=== PATIENT | female | born 1985 | race Caucasian/White ===

== ENCOUNTER → 2016-05-17 | Outpatient (CLI) | payer OTHER, BC ==
--- NOTE | 2016-05-18 13:55 | CR ---
EXAM DATE: 05/17/16 PATIENT'S AGE: 30 Patient: MIKKI MASON Facility: [place], [place] Site . Site : 1985 Study: XRay Extremity multiple toes [id number]/16/2017 4:51:59 PM Ordering Physician: Royce Locke Final Report: HISTORY: Pain 2nd and 3rd toes. Unknown injury. Findings: Three views of the right 2nd and 3rd toes demonstrates normal bone mineralization. There is normal alignment present. Joint spaces are maintained. No fracture or dislocation. No radiopaque foreign body. There is a small traction spur at the plantar aspect of the calcaneus. Impression: No bony abnormality within the 2nd and 3rd toes. Dictated by Santa Meyer MD @ May 18 2016 8:49AM (Electronic Signature) Report Signed by Proxy and Original Signed Document filed in the Medical Record. SHANI
== END ==
LOC: MW.CHFP 16:26
PROVIDERS: ATTEND Physician Assistant
DX: S99.921A Unspecified injury of right foot, initial encounter (principal)
CPT/HCPCS: 73660-26-RT; 73660-RT

== ENCOUNTER 2017-01-21 11:28 | Inpatient (IN) | payer BC ==
[2017-01-21] MEDS ORDERED: Water For Irrigation,Sterile 1,000 ML Container IRR PRN (13:57)
[2017-01-21] MEDS ORDERED: Sodium Chloride 0.9% 10 ML Syringe FLUSH PRN (13:57)
[2017-01-21] MEDS ORDERED: Misoprostol 200 MCG Tab PO PRN (13:57)
[2017-01-21] MEDS ORDERED: Nalbuphine 10 MG/1 ML Vial IVPUSH PRN (13:57)
[2017-01-21] MEDS ORDERED: Butorphanol 1 MG/ML SDV IVPUSH PRN (13:57)
[2017-01-21] MEDS ORDERED: Methylergonovine 0.2 MG/1 ML Amp IM PRN (13:57)
[2017-01-21] MEDS ORDERED: Sodium Chloride 0.9% 2.5 ML Syringe FLUSH PRN (13:57)
[2017-01-21] MEDS ORDERED: Lidocaine 1% 50 ML MDV INJECT PRN (13:57)
[2017-01-21] MEDS ORDERED: Carboprost Tromethamine 250 MCG/1 ML Amp IM PRN (13:57)
[2017-01-21] MEDS ORDERED: Lactated Ringers 1,000 ML IV SCH (14:00)
[2017-01-21] MEDS ORDERED: Oxytocin/0.9 % Sodium Chloride 30 UNIT/500 ML BAG IV SCH (14:00)
--- NOTE | 2017-01-21 18:12 | PCM.PREANE ---
Preanesthetic Assessment - Anesthesia/Transfusion/Family Hx Anesthesia History: Prior Anesthesia Without Reaction Transfusion History: No Prior Transfusion(s) - Review of Systems General: No Symptoms Pulmonary: No Symptoms Cardiovascular: No Symptoms Gastrointestinal: No Symptoms Neurological: No Symptoms Other: Reports: None - Physical Assessment Height: 5 ft 1 in Weight: 82.554 kg ASA Class: 2 Mental Status: Alert & Oriented x3 Airway Class: Mallampati = 2 Dentition: Reports: Normal Dentition Thyro-Mental Finger Breadths: 3 Mouth Opening Finger Breadths: 3 ROM/Head Extension: Full Lungs: Clear to Auscultation, Normal Respiratory Effort Cardiovascular: Regular Rate, Regular Rhythm - Lab Values: Laboratory Last Values WBC 9.89 K/uL (4.0-11.0) 01/21/17 14:10 RBC 3.91 M/uL (4.30-5.90) L 01/21/17 14:10 Hgb 12.5 g/dL (12.0-16.0) 01/21/17 14:10 Hct 36.3 % (36.0-46.0) 01/21/17 14:10 MCV 92.8 fL (80.0-98.0) 01/21/17 14:10 MCH 32.0 pg (27.0-32.0) 01/21/17 14:10 MCHC 34.4 g/dL (31.0-37.0) 01/21/17 14:10 RDW Std Deviation 45.8 fl (28.0-62.0) 01/21/17 14:10 RDW Coeff of Aaron 14 % (11.0-15.0) 01/21/17 14:10 Plt Count 200 K/uL (150-400) 01/21/17 14:10 MPV 9.80 fL (7.40-12.00) 01/21/17 14:10 Nucleated RBC % 0.0 /100WBC 01/21/17 14:10 Nucleated RBCs # 0 K/uL 01/21/17 14:10 Blood Type A POSITIVE 01/21/17 14:10 Antibody Screen NEGATIVE 01/21/17 14:10 - Allergies Allergies/Adverse Reactions: Allergies Allergy/AdvReac Type Severity Reaction Status Date / Time No Known Allergies Allergy Verified 08/30/14 22:59 - Acknowledgements Anesthesia Type Planned: Epidural Pt an Appropriate Candidate for the Planned Anesthesia: Yes Alternatives and Risks of Anesthesia Discussed w Pt/Guardian: Yes Pt/Guardian Understands and Agrees with Anesthesia Plan: Yes PreAnesthesia Questionnaire - Past Health History Medical/Surgical History: Denies Medical/Surgical History HEENT History: Reports: None Other Cardiovascular History: none Respiratory History: Reports: None Gastrointestinal History: Reports: GERD Genitourinary History: Reports: None SL[employer] History: Reports: : 4 Para: 2 LMP (Approximate): Musculoskeletal History: Reports: None Neurological History: Reports: None Psychiatric History: Reports: None Endocrine/Metabolic History: Reports: Obesity/BMI 30+ Hematologic History: Reports: None Immunologic History: Reports: None Oncologic (Cancer) History: Reports: None Dermatologic History: Reports: None - Infectious Disease History Infectious Disease History: Reports: Chicken Pox - Past Surgical History Other Cardiovascular Surgeries/Procedures: none - SUBSTANCE USE Smoking Status *Q: Never Smoker Second Hand Smoke Exposure: No Days Per Week of Alcohol Use: 0 Recreational Drug Use History: No - HOME MEDS Home Medications: Home Meds Vit No.130/Iron/FA [ Tablet] 1 tab PO DAILY 08/30/14 [History] Acetaminophen [Tylenol Extra Strength] 1,000 mg PO Q4H PRN #30 tablet 09/01/14 [ Rx] Benzocaine/Menthol [Dermoplast Pain Relief 20%-0.5% [place]] 78 gm TOP ASDIRECTED PRN #1 canister 09/01/14 [Rx] Docusate Sodium [Colace] 100 mg PO BID PRN #30 cap 09/01/14 [Rx] Lanolin [Lansinoh HPA] 7 g TOP ASDIRECTED PRN #1 crm 09/01/14 [Rx] - CURRENT (IN HOUSE) MEDS Current Meds: Current Medications Butorphanol Tartrate (Stadol) 1 mg IVPUSH Q1H PRN PRN Reason: Pain Carboprost Tromethamine (Hemabate Ds) 250 mcg IM ASDIRECTED PRN PRN Reason: Post Hemorrhage Lactated Ringer's (Ringers, Lactated) 1,000 mls @ 150 mls/hr IV ASDIRECTED AIDE Last Admin: 01/21/17 17:36 Dose: 150 mls/hr Oxytocin/Sodium Chloride (Oxytocin 30 Unit/500 Ml-Ns) 30 unit in 500 mls @ 250 mls/hr IV TITRATE AIDE Lidocaine HCl (Xylocaine 1%) 50 ml INJECT .ONCE PRN PRN Reason: Laceration repair Methylergonovine Maleate (Methergine) 0.2 mg IM ASDIRECTED PRN PRN Reason: Post Hemorrhage Misoprostol (Cytotec) 200 mcg PO .ONCE PRN PRN Reason: Post Hemorrhage Nalbuphine HCl (Nubain) 10 mg IVPUSH Q1H PRN PRN Reason: Pain (severe 7-10) Sodium Chloride (Saline Flush) 10 ml FLUSH ASDIRECTED PRN PRN Reason: Keep Vein Open Sodium Chloride (Saline Flush) 2.5 ml FLUSH ASDIRECTED PRN PRN Reason: Keep Vein Open Sterile Water (Sterile Water For Irrigation) 1,000 ml IRR ASDIRECTED PRN PRN Reason: delivery
[2017-01-21] MEDS ORDERED: fentaNYL 100 MCG/2 ML SDV ONE (18:20)
[2017-01-21] MEDS ORDERED: Ropivacaine HCl/PF 100 ML ONE (18:20)
[2017-01-21] MEDS ORDERED: oxyCODONE 5 MG Tab PO PRN (21:40)
[2017-01-21] MEDS ORDERED: Acetaminophen 500 MG Tab PO PRN ×2 (21:40)
[2017-01-21] MEDS ORDERED: Bisacodyl 10 MG Supp RECTAL PRN (21:40)
[2017-01-21] MEDS ORDERED: Docusate Sodium 100 MG Cap PO PRN (21:40)
[2017-01-21] MEDS ORDERED: Witch Hazel Medicated Pads 40/Jar TOP PRN (21:40)
[2017-01-21] MEDS ORDERED: Lanolin 100% Cream 7 GM Tube TOP PRN (21:40)
[2017-01-21] MEDS ORDERED: Ibuprofen 400 MG Tab PO PRN (21:40)
[2017-01-21] MEDS ORDERED: Benzocaine/Menthol 20%-0.5% Spray 78 GM Cannister TOP PRN (21:40)
--- NOTE | 2017-01-21 23:13 | OR ---
SURGEON: Chelsie Garcia MD DATE OF PROCEDURE: 01/21/2017 PREOPERATIVE DIAGNOSES: 1. Term at 40 weeks and 1 day. 2. Spontaneous labor. POSTOPERATIVE DIAGNOSES: 1. Term at 40 weeks and 1 day. 2. Spontaneous labor. 3. Delivered. PROCEDURE: 1. Spontaneous vaginal delivery. 2. Repair of perineal laceration. ANESTHESIA: Epidural. ESTIMATED BLOOD LOSS: 150 mL. COMPLICATIONS: None. DISPOSITION: Mother and baby stable in Labor and Delivery room, bonding. FINDINGS: Female infant, weight 3770 g, score 8 and 9 at one and five minutes respectively. Lightly meconium-stained amniotic fluid at delivery. Grossly normal placenta with 3-vessel cord. First-degree vaginal lacerations. BRIEF HISTORY: Leonor is a 31-year-old G4, P2-0-1-2 who presented at 40 weeks and 1 day with a history of contractions for over 24 hours with increasing intensity. Denied vaginal bleeding, leakage of fluid, and reported active fetus. Uncomplicated care. GBS negative. On admission at about 11 a.m., she was found to be 3-cm dilated, allowed to ambulate and reexamined, and hour after she had made cervical change to 4 cm, 80% effaced, station -2. She was then admitted. She continued to contract anything from 2 to 6 minutes, but made slow steady change. Seven hours later, she was 6-cm dilated, artificial rupture of membranes was performed with clear amniotic fluid noted. She then received epidural for pain management. Shortly after, the epidural was placed, she became fully dilated and with a strong urge to push, she commenced active pushing. She pushed quite well bringing the baby's head down to a +4 station and was setup for delivery in a modified dorsal lithotomy position. DESCRIPTION OF PROCEDURE: She had a spontaneous vaginal delivery of a live female infant in direct occipital anterior position, no nuchal cord, lightly meconium-stained amniotic fluid at delivery. No difficulty delivering the anterior and the posterior shoulders and the rest of the baby. Baby was vigorous and cried spontaneously at . The baby was delivered onto the maternal abdomen with the nursery nurse attending to her. Delayed cord clamping was performed, and the cord was subsequently cut by the father of the baby. With delivery of the infant, oxytocin infusion was commenced for active management of 3rd stage of labor. Cord blood and gas samples were obtained. Placenta was delivered by controlled cord traction appeared to be complete and intact. Examination of the perineum revealed a first-degree laceration, which was repaired with 3-0 Vicryl suture and hemostatic postrepair. Uterine massage was performed. The uterus was found to be well-contracted below the umbilicus. The patient tolerated the procedure well. Sponge, instrument, and needle counts were correct at the end of the delivery. ADUMVIV / NAHEEDL /[id number] MTDPascual
[2017-01-22] MEDS: Ibuprofen 800 MG Tab PO PRN ×2 (04:34→11:10)
--- NOTE | 2017-01-22 08:12 | PCM.PNPP ---
- General Info Date of Service: 01/22/17 Functional Status: Reports: Pain Controlled, Tolerating Diet, Ambulating, Urinating - Review of Systems General: Denies: Fever, Malaise, Chills HEENT: Denies: Headaches Pulmonary: Denies: Shortness of Breath, Pleuritic Chest Pain Cardiovascular: Denies: Chest Pain, Palpitations, Dyspnea on Exertion Gastrointestinal: Denies: Abdominal Pain Genitourinary: Denies: Dysuria, Incontinence, Retention Psychiatric: Denies: Depression, Mood Lability, Anxiety - General Info Date of Service: 01/22/17 - Patient Data Vital Signs - Most Recent: Last Vital Signs Temp 36.7 C 01/22/17 04:30 Pulse 80 01/22/17 04:30 Resp 16 01/22/17 04:30 BP 139/70 01/22/17 04:30 Pulse Ox 98 01/22/17 04:30 Weight - Most Recent: 182 lb Lab Results - Last 24 Hours: Laboratory Results - last 24 hr 01/21/17 01/21/17 01/22/17 Range/Units 14:10 14:10 05:25 WBC 9.89 (4.0-11.0) K/uL RBC 3.91 L (4.30-5.90) M/uL Hgb 12.5 11.9 L (12.0-16.0) g/dL Hct 36.3 34.3 L (36.0-46.0) % MCV 92.8 (80.0-98.0) fL MCH 32.0 (27.0-32.0) pg MCHC 34.4 (31.0-37.0) g/dL RDW Std Deviation 45.8 (28.0-62.0) fl RDW Coeff of Aaron 14 (11.0-15.0) % Plt Count 200 (150-400) K/uL MPV 9.80 (7.40-12.00) fL Nucleated RBC % 0.0 /100WBC Nucleated RBCs # 0 K/uL Blood Type A POSITIVE Antibody Screen NEGATIVE Med Orders - Current: Current Medications Acetaminophen (Tylenol Extra Strength) 500 mg PO Q4H PRN PRN Reason: Pain Acetaminophen (Tylenol Extra Strength) 1,000 mg PO Q4H PRN PRN Reason: Pain Benzocaine/Menthol (Dermoplast Pain Relief 20%-0.5% [place]) 0 gm TOP ASDIRECTED PRN PRN Reason: Perineal Comfort Measure Last Admin: 01/21/17 22:50 Dose: 1 spray Bisacodyl (Dulcolax) 10 mg RECTAL .ONCE PRN PRN Reason: Constipation Docusate Sodium (Colace) 100 mg PO BID PRN PRN Reason: Constipation Emollient Ointment (Lansinoh Hpa) 0 gm TOP ASDIRECTED PRN PRN Reason: Sore Nipples Ibuprofen (Motrin) 400 mg PO Q4H PRN PRN Reason: Pain Ibuprofen (Motrin) 800 mg PO Q6H PRN PRN Reason: Pain Last Admin: 01/22/17 04:34 Dose: 800 mg Oxycodone HCl (Oxycodone) 5 mg PO Q2H PRN PRN Reason: Pain Witch Shelli (Tucks) 1 pad TOP ASDIRECTED PRN PRN Reason: comfort care Discontinued Medications Butorphanol Tartrate (Stadol) 1 mg IVPUSH Q1H PRN PRN Reason: Pain Carboprost Tromethamine (Hemabate Ds) 250 mcg IM ASDIRECTED PRN PRN Reason: Post Hemorrhage Fentanyl (Sublimaze) Confirm Administered Dose 100 mcg .ROUTE .STK-MED ONE Stop: 01/21/17 18:21 Lactated Ringer's (Ringers, Lactated) 1,000 mls @ 150 mls/hr IV ASDIRECTED [facility] Last Admin: 01/21/17 17:36 Dose: 150 mls/hr Oxytocin/Sodium Chloride (Oxytocin 30 Unit/500 Ml-Ns) 30 unit in 500 mls @ 250 mls/hr IV TITRATE [facility] Last Admin: 01/21/17 20:35 Dose: 500 mls/hr Ropivacaine (Naropin 0.2%) Confirm Administered Dose 100 mls @ as directed .ROUTE .STK-MED ONE Stop: 01/21/17 18:21 Lidocaine HCl (Xylocaine 1%) 50 ml INJECT .ONCE PRN PRN Reason: Laceration repair Methylergonovine Maleate (Methergine) 0.2 mg IM ASDIRECTED PRN PRN Reason: Post Hemorrhage Misoprostol (Cytotec) 200 mcg PO .ONCE PRN PRN Reason: Post Hemorrhage Nalbuphine HCl (Nubain) 10 mg IVPUSH Q1H PRN PRN Reason: Pain (severe 7-10) Sodium Chloride (Saline Flush) 10 ml FLUSH ASDIRECTED PRN PRN Reason: Keep Vein Open Sodium Chloride (Saline Flush) 2.5 ml FLUSH ASDIRECTED PRN PRN Reason: Keep Vein Open Sterile Water (Sterile Water For Irrigation) 1,000 ml IRR ASDIRECTED PRN PRN Reason: delivery Last Admin: 01/21/17 20:30 Dose: 1,000 ml - Interaction Disposition, : [place] in Room with Family Interaction: Holding Infant Feeding: Breastfed ; Nursed Well Support Person: - Recovery Exam Fundal Level: 2 Fingerbreadths Above Umbilicus Fundal Placement: Midline Lochia Amount: Scant Lochia Color: Rubra/Red Perineum Description: Intact, Minimal Bruising/Swelling Episiotomy/Laceration: None Bladder Status: Voiding - Exam General: Alert, Oriented HEENT: Pupils Equal Lungs: Clear to Auscultation, Normal Respiratory Effort Cardiovascular: Regular Rate, Regular Rhythm GI/Abdominal Exam: Normal Bowel Sounds Extremities: Non-Tender, Pedal Edema Neurological: No New Focal Deficit Psy/Mental Status: Alert, Normal Affect, Normal Mood - Problem List & Annotations (1) Vaginal delivery SNOMED Code(s): 048124755 Code(s): O80 - ENCOUNTER FOR FULL-TERM UNCOMPLICATED DELIVERY Status: Acute Current Visit: No - Problem List Review Problem List Initiated/Reviewed/Updated: Yes - My Orders Last 24 Hours: My Active Orders 01/21/17 11:46 Up ad Irene [RC] ASDIRECTED Vaginal Exam [RC] Click to Edit Vital Signs [RC] PER UNIT ROUTINE 01/21/17 13:57 Heart Tones [RC] CONTINUOUS Non Stress Test [RC] PER UNIT ROUTINE May Shower [RC] ASDIRECTED Notify Provider [RC] PRN Up ad Irene [RC] ASDIRECTED Vaginal Exam [RC] PRN Vital Signs [RC] PER UNIT ROUTINE 01/21/17 21:40 Patient Status [ADT] Routine May Shower [RC] ASDIRECTED Up ad Irene [RC] ASDIRECTED Vital Signs [RC] PER UNIT ROUTINE Acetaminophen [Tylenol Extra Strength] 1,000 mg PO Q4H PRN Acetaminophen [Tylenol Extra Strength] 500 mg PO Q4H PRN Benzocaine/Menthol [Dermoplast Pain Relief 20%-0.5% [place]] 0 gm TOP ASDIRECTED PRN Bisacodyl [Dulcolax] 10 mg RECTAL .ONCE PRN Docusate Sodium [Colace] 100 mg PO BID PRN Ibuprofen [Motrin] 400 mg PO Q4H PRN Ibuprofen [Motrin] 800 mg PO Q6H PRN Lanolin [Lansinoh HPA] See Dose Instructions TOP ASDIRECTED PRN Witch Shelli [Tucks] 1 pad TOP ASDIRECTED PRN oxyCODONE 5 mg PO Q2H PRN Assess Lochia [WOMSER] Per Unit Routine Assess Uterine Involution [WOMSER] Per Unit Routine Breast Pump [WOMSER] Per Unit Routine Peripheral IV Discontinue [OM.PC] Routine Resuscitation Status Routine 01/21/17 21:41 Perineal Care [OM.PC] Per Unit Routine 01/22/17 Breakfast Regular Diet [DIET] - Assessment Assessment:: PPD#1 s/p , stable and afebrile - Plan Plan:: Patient delivered late last night and would like to stay another 24 hours before being discharged. Aim for discharge tomorrow
--- NOTE | 2017-01-22 10:07 | PCM48HPAN ---
Post Anesthesia Note - EVALUATION WITHIN 48HRS OF ANESTHETIC Vital Signs in Normal Range: Yes Patient Participated in Evaluation: Yes Respiratory Function Stable: Yes Airway Patent: Yes Cardiovascular Function Stable: Yes Hydration Status Stable: Yes Pain Control Satisfactory: Yes Nausea and Vomiting Control Satisfactory: Yes Mental Status Recovered: Yes - COMMENTS/OBSERVATIONS Free Text/Narrative:: Denies any problems or concerns at this time. States epidural worked great and feeling came back quick.
[2017-01-23] MEDS: Ibuprofen 800 MG Tab PO PRN (04:14)
[2017-01-23 07:15] VITALS: BP 124/74
--- NOTE | 2017-01-23 08:59 | PCM.PNPP ---
- General Info Date of Service: 01/23/17 Functional Status: Reports: Pain Controlled, Tolerating Diet, Ambulating, Urinating - Review of Systems General: Denies: Fever, Malaise, Chills HEENT: Denies: Headaches Pulmonary: Denies: Shortness of Breath, Cough Cardiovascular: Denies: Chest Pain, Palpitations, Dyspnea on Exertion Gastrointestinal: Denies: Abdominal Pain Genitourinary: Denies: Dysuria, Incontinence, Retention Neurological: Denies: Confusion Psychiatric: Denies: Confusion, Mood Lability, Anxiety - General Info Date of Service: 01/23/17 - Patient Data Vital Signs - Most Recent: Last Vital Signs Temp 36.5 C 01/23/17 04:00 Pulse 73 01/23/17 04:00 Resp 17 01/23/17 04:00 BP 124/74 01/23/17 04:00 Pulse Ox 100 01/23/17 04:00 Weight - Most Recent: 182 lb Med Orders - Current: Current Medications Acetaminophen (Tylenol Extra Strength) 500 mg PO Q4H PRN PRN Reason: Pain Acetaminophen (Tylenol Extra Strength) 1,000 mg PO Q4H PRN PRN Reason: Pain Benzocaine/Menthol (Dermoplast Pain Relief 20%-0.5% [place]) 0 gm TOP ASDIRECTED PRN PRN Reason: Perineal Comfort Measure Last Admin: 01/21/17 22:50 Dose: 1 spray Bisacodyl (Dulcolax) 10 mg RECTAL .ONCE PRN PRN Reason: Constipation Docusate Sodium (Colace) 100 mg PO BID PRN PRN Reason: Constipation Emollient Ointment (Lansinoh Hpa) 0 gm TOP ASDIRECTED PRN PRN Reason: Sore Nipples Ibuprofen (Motrin) 400 mg PO Q4H PRN PRN Reason: Pain Ibuprofen (Motrin) 800 mg PO Q6H PRN PRN Reason: Pain Last Admin: 01/23/17 04:14 Dose: 800 mg Oxycodone HCl (Oxycodone) 5 mg PO Q2H PRN PRN Reason: Pain Witch Shelli (Tucks) 1 pad TOP ASDIRECTED PRN PRN Reason: comfort care Discontinued Medications Butorphanol Tartrate (Stadol) 1 mg IVPUSH Q1H PRN PRN Reason: Pain Carboprost Tromethamine (Hemabate Ds) 250 mcg IM ASDIRECTED PRN PRN Reason: Post Hemorrhage Fentanyl (Sublimaze) Confirm Administered Dose 100 mcg .ROUTE .STK-MED ONE Stop: 01/21/17 18:21 Lactated Ringer's (Ringers, Lactated) 1,000 mls @ 150 mls/hr IV ASDIRECTED AIDE Last Admin: 01/21/17 17:36 Dose: 150 mls/hr Oxytocin/Sodium Chloride (Oxytocin 30 Unit/500 Ml-Ns) 30 unit in 500 mls @ 250 mls/hr IV TITRATE [facility] Last Admin: 01/21/17 20:35 Dose: 500 mls/hr Ropivacaine (Naropin 0.2%) Confirm Administered Dose 100 mls @ as directed .ROUTE .[employer] ONE Stop: 01/21/17 18:21 Lidocaine HCl (Xylocaine 1%) 50 ml INJECT .ONCE PRN PRN Reason: Laceration repair Methylergonovine Maleate (Methergine) 0.2 mg IM ASDIRECTED PRN PRN Reason: Post Hemorrhage Misoprostol (Cytotec) 200 mcg PO .ONCE PRN PRN Reason: Post Hemorrhage Nalbuphine HCl (Nubain) 10 mg IVPUSH Q1H PRN PRN Reason: Pain (severe 7-10) Sodium Chloride (Saline Flush) 10 ml FLUSH ASDIRECTED PRN PRN Reason: Keep Vein Open Sodium Chloride (Saline Flush) 2.5 ml FLUSH ASDIRECTED PRN PRN Reason: Keep Vein Open Sterile Water (Sterile Water For Irrigation) 1,000 ml IRR ASDIRECTED PRN PRN Reason: delivery Last Admin: 01/21/17 20:30 Dose: 1,000 ml - Interaction Disposition, : in Room with Family Interaction: Not Applicable Infant Feeding: Breastfed Infant; Nursed Well Support Person: - Recovery Exam Fundal Tone: Firm Fundal Level: 1 Fingerbreadths Below Umbilicus Fundal Placement: Midline Lochia Amount: Small Lochia Color: Rubra/Red Perineum Description: Intact, Minimal Bruising/Swelling Episiotomy/Laceration: None Bladder Status: Voiding Urinary Elimination: Voided - Exam General: Alert Lungs: Clear to Auscultation, Normal Respiratory Effort Cardiovascular: Regular Rate, Regular Rhythm GI/Abdominal Exam: Normal Bowel Sounds Extremities: Non-Tender, Pedal Edema Psy/Mental Status: Alert, Normal Affect, Normal Mood - Problem List & Annotations (1) Vaginal delivery SNOMED Code(s): 346651037 Code(s): O80 - ENCOUNTER FOR FULL-TERM UNCOMPLICATED DELIVERY Status: Acute Current Visit: No - Problem List Review Problem List Initiated/Reviewed/Updated: Yes - My Orders Last 24 Hours: My Active Orders 01/23/17 08:54 Ready for Discharge [RC] PER UNIT ROUTINE - Assessment Assessment:: PPD#2 s/p , stable and afebrile - Plan Plan:: Clinically stable for discharge Discharge instructions reviewed Nothing in the vagina for 6 weeks Bleeding and infection precautions reviewed Follow up in 6 weeks
== END 2017-01-23 11:14 | disposition home or self-care (01) | DRG 560 ==
LOC: MW.OBCHECK 11:28 → MW.OB 13:57 → OBSVTOIN 20:33 → MW.OB 22:30
PROVIDERS: ADMIT Obstetrics & Gynecology; ATTEND Obstetrics & Gynecology
PROC: 10E0XZZ Delivery of Products of Conception, External Approach (ICD-10-PCS; principal; 2017-01-21)
PROC: 0HQ9XZZ Repair Perineum Skin, External Approach (ICD-10-PCS; 2017-01-21)
PROC: 10907ZC Drainage of Amniotic Fluid, Therapeutic from Products of Conception, Via Natural or Artificial Opening (ICD-10-PCS; 2017-01-21)
PROC: 00HU33Z Insertion of Infusion Device into Spinal Canal, Percutaneous Approach (ICD-10-PCS; 2017-01-21)
PROC: 3E0R3BZ Introduction of Anesthetic Agent into Spinal Canal, Percutaneous Approach (ICD-10-PCS; 2017-01-21)
DX: O70.0 First degree perineal laceration during delivery (principal); Z3A.40 40 weeks gestation of pregnancy; Z37.0 Single live birth
CPT/HCPCS: 36415; 51701; 59025; 59409; 85014; 85018; 85027; 86850; 86900; 86901; A9270-GY; J2590; J7120